=== PATIENT | male | born 1945 | race Caucasian/White ===

== ENCOUNTER → 2017-04-18 | Outpatient (CLI) | payer MEDICARE, BC ==
[~2017-04-18] MED LIST: ACCUNEB SOL3 ML/NE1 IN; ALBUTEROL-200 PUFFS/ IH; ASPIRIN 325MG325 MG PO; BISOPROLOL 5MG T5 MG PO; CARDIZEM CD120 MG PO; CARDIZEM CD300 MG PO; CARDIZEM LA300 MG PO; CIPRO 500MG TA500 MG PO; CLOPIDOGREL75 MG PO; COREG 6.25MG6.25 MG PO; COUMADIN 5MG TAB5 MG PO; DIGOXIN0.125 MG PO; HYDROCODONE-HOMATROP PO; IPRATROPIUM 2.2.5 ML IH; LORTAB 500 MG-11 TAB PO; PLAVIX75 MG PO; PREDNISONE 20MG20 MG PO; SIMVASTATIN20 MG PO; SPIRIVA HA1 PUFF/INH IH; ST. JOSEPH81 M1 PO; SYMBICORT1 AE1 IH; SYMBICORT1 AER IH; TESSALON PERLE100 M1 PO; TYLENOL ES500 M1 PO; WARFARIN 3MG TAB3 MG PO; WARFARIN SODIU2.5 MG PO
--- NOTE | 2017-04-18 15:24 | RADIOLOGY REPORT PS360 ---
CHEST(2 VIEWS-NOT PORTABLE) HISTORY: Shortness of air, cough and congestion, COPD COPD,SHORTNESS OF BREATH ORDERING PHYSICIAN: Sola KILGORE PATIENT AGE: 71 years COMPARISON: 05/28/2015 FINDINGS: Unremarkable cardiovascular structures. There is evidence of old granulomatous disease.. Hyperinflation with attenuation of the peripheral pulmonary vessels consistent with COPD. There is patchy density in the right lung base laterally suggestive of a small area of infiltrate.. No acute bony abnormalities. IMPRESSION: COPD with patchy infiltrate in the right lung base
== END ==
LOC: RAD 14:08
DX: J44.0 Chronic obstructive pulmonary disease with (acute) lower respiratory infection (principal); R06.02 Shortness of breath